=== PATIENT | male | born 1950 | race Caucasian/White ===

== ENCOUNTER → 2018-04-07 | Outpatient (CLI) | payer MEDICAID, MEDICARE ==
--- NOTE | 2018-04-07 11:43 | RADIOLOGY REPORT (SQ) ---
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 Additio nal selected color Doppler and spectral images recorded. LIMITATIONS: Midline bowel gas FINDINGS: PANCREAS: Not well seen LIVER: Echogenic liver with nodular contour from cirrhosis LIVER VASCULATURE: Unable to effectively Doppler GALLBLADDER: Diffuse gallbladder wall thickening which is nonspecific in the setting of ascites ULTRASOUND-DETECTED BARRERA'S SIGN: Negative. INTRAHEPATIC DUCTS AND COMMON DUCT: Not well seen INFERIOR VENA CAVA: Not well seen AORTA: Not well seen RIGHT KIDNEY: Normal size. Normal echogenicity. No solid or suspicious masses. No hydronephros is. No calcifications. LEFT KIDNEY: Normal size. Normal echogenicity. No solid or suspicious masses. No hydronephrosi s. No calcifications. SPLEEN: 12 cm in length. PERITONEAL AND PLEURAL SPACES: Small to moderate amount of ascites OTHER: No other significant finding. IMPRESSION: Echogenic nodular liver from cirrhosis Small a moderate amount of ascites. Nonspecific gallbladder wall thickening. Very difficult to obtain any color or Doppler tracings of the hepatic veins and portal vein due to li mited acoustic window from bowel gas. TECHNICAL DOCUMENTATION: JOB ID: [id number] [employer]- All Rights Reserved Reading location - IP/workstation name: [facility]
== END ==
LOC: RAD 10:31
PROVIDERS: ATTEND Internal Medicine Gastroenterology
DX: B18.2 Chronic viral hepatitis C (principal); R18.8 Other ascites; R94.5 Abnormal results of liver function studies
CPT/HCPCS: 76700

== ENCOUNTER → 2018-04-12 | Outpatient (CLI) | payer MEDICARE ==
[2018-04-12 09:45] LABS: ABSOLUTE BASOPHILS # (AUTO) 0.2 10^3/uL (0.0-0.2); ABSOLUTE EOSINOPHILS # (AUTO) 1.2 10^3/uL (0.0-0.6); ABSOLUTE LYMPHOCYTES (AUTO) 2.7 10^3/uL (0.5-4.7); ABSOLUTE MONOCYTES (AUTO) 0.6 10^3/uL (0.1-1.4); ABSOLUTE NEUT (AUTO) 11.9 10^3/uL (1.7-8.2); BASOPHILS % (AUTO) 1.1 % (0-2); EOSINOPHILS % (AUTO) 7.2 % (0-6); HEMOGLOBIN 13.4 g/dL (13.5-17.0); LYMPHOCYTES % (AUTO) 16.1 % (13-45); MEAN CORPUSCULAR HGB CONC 33.4 g/dL (32.0-36.0); MEAN CORPUSCULAR VOLUME 99 fl (80-97); MONOCYTES % (AUTO) 3.5 % (3-13); PLATELET COUNT 176 10^3/uL (150-450); RED BLOOD COUNT 4.06 10^6/uL (4.35-5.55); RED CELL DISTRIBUTION WIDTH 15.8 % (11.5-14.0); SEGMENTED NEUTROPHILS % (AUTO) 72.1 % (42-78); TOTAL CELLS COUNTED % (AUTO) 100 %; WHITE BLOOD COUNT 16.5 10^3/uL (4.0-10.5)
[2018-04-12 10:12] LABS: ALANINE AMINOTRANSFERASE 28 U/L (21-72); ALBUMIN 3.1 g/dL (3.5-5.0); ALKALINE PHOSPHATASE 223 U/L (38-126); ANION GAP 11 (5-19); ASPARTATE AMINO TRANSFERASE 54 U/L (17-59); BILIRUBIN,DIRECT 1.3 mg/dL (0.0-0.4); BILIRUBIN,TOTAL 1.9 mg/dL (0.2-1.3); BLOOD UREA NITROGEN 30 mg/dL (7-20); CALCIUM 9.4 mg/dL (8.4-10.2); CARBON DIOXIDE 26 mmol/L (22-30); CHLORIDE 105 mmol/L (98-107); GLUCOSE 119 mg/dL (75-110); POTASSIUM 4.7 mmol/L (3.6-5.0); SODIUM 141.6 mmol/L (137-145); TOTAL PROTEIN 7.3 g/dL (6.3-8.2)
[2018-04-13 07:40] LABS: HEPATITS B SURFACE ANTIGEN Negative (Negative)
[2018-04-13 07:42] LABS: HEPATITIS B CORE AB TOT Positive (Negative); HEPATITIS B SURFACE AB QUANT <3.1 mIU/mL (Immunity>9)
[2018-04-13 09:25] LABS: AFP SERUM TUMOR MARKER 3.4 ng/mL (0.0-8.3)
== END ==
LOC: LAB 09:14
PROVIDERS: ATTEND Physician Assistant Surgical
DX: R18.8 Other ascites (principal); R17 Unspecified jaundice; R94.5 Abnormal results of liver function studies
CPT/HCPCS: 36415; 80048; 80076; 82105; 85025; 86317; 86704; 87340

== ENCOUNTER 2018-04-19 07:39 | Day surgery (SDC) | payer MEDICARE ==
[2018-04-19 08:33] LABS: HEMATOCRIT 35.7 % (37.9-51.0); HEMOGLOBIN 11.8 g/dL (13.5-17.0); MEAN CORPUSCULAR HEMOGLOBIN 32.4 pg (27.0-33.4); MEAN CORPUSCULAR VOLUME 98 fl (80-97); PLATELET COUNT 188 10^3/uL (150-450); RED BLOOD COUNT 3.64 10^6/uL (4.35-5.55); RED CELL DISTRIBUTION WIDTH 16.1 % (11.5-14.0)
[2018-04-19 08:47] LABS: INTERNATIONAL RATION (INR) 1.28; PROTHROMBIN TIME 16.7 SEC (11.4-15.4)
[2018-04-19 08:48] LABS: PARTIAL THROMBOPLASTIN TIME 36.6 SEC (23.5-35.8)
[2018-04-19 09:03] LABS: BLOOD UREA NITROGEN 26 mg/dL (7-20)
[2018-04-19 09:11] LABS: WHITE BLOOD COUNT 13.4 10^3/uL (4.0-10.5)
--- NOTE | 2018-04-19 10:42 | RADIOLOGY REPORT (SQ) ---
EXAM DESCRIPTION: U/S ABD PARACENTESIS COMPLETED DATE/TIME: 04/19/2018 10:03 am REASON FOR STUDY: ASCITES COMPARISON 04/07/2018 LIMITATIONS: None. PROCEDURE: After obtaining informed consent, the patient was brought to the ultrasound suite. The p rocedure was performed with the patient on a gurney. Ultrasound was used to identify a prominent poc ket of ascites in the right lower quadrant. An appropriate access site was selected. The patient wa s prepped and draped in usual sterile fashion. The access site was anesthetized with 6 mL 1% lidoca ine. A [facility] needle was advanced into the fluid. After aspiration of fluid the needle, th e catheter was advanced off the needle into the fluid. A total of 3,000 mL of cloudy straw-colored f luid was removed. The patient tolerated the procedure well left the department in satisfactory condit ion. Fluid was sent for testing as per Dr. Murillo IMPRESSION: Successful ultrasound-guided diagnostic and therapeutic paracentesis COMMENT: Patient medication list reviewed: Yes- Quality ID# [id number]:Eligible professional attests to doc umenting in the medical record they obtained, updated, or reviewed the patient's current medications. TECHNICAL DOCUMENTATION: JOB ID: [id number] [employer]- All Rights Reserved Reading location - IP/workstation name: [facility]
[2018-04-19 11:19] LABS: FLUID TYPE PERITONEAL
[2018-04-19 11:20] LABS: FLUID COLOR YELLOW; FLUID SOURCE ASCITES
[2018-04-19 11:21] LABS: FLUID APPEARANCE SLIGHTLY HAZY; FLUID VISCOSITY SLIGHTLY VISCOUS
[2018-04-19 11:52] VITALS: BP 128/87
== END 2018-04-19 11:15 | disposition home or self-care (01) ==
LOC: RAD 07:39
PROVIDERS: ATTEND Internal Medicine Gastroenterology
DX: K70.31 Alcoholic cirrhosis of liver with ascites (principal); R94.5 Abnormal results of liver function studies; F10.20 Alcohol dependence, uncomplicated; B18.2 Chronic viral hepatitis C; K29.01 Acute gastritis with bleeding; Z88.0 Allergy status to penicillin
CPT/HCPCS: 36415; 49083; 82042; 82565; 84520; 85027; 85610; 85730; 89050